=== PATIENT | female | born 1950 | race Caucasian/White ===

== ENCOUNTER 2024-10-27 12:35 | Emergency (ER) | payer BC, SELFPAY ==
--- OUTSIDE RECORDS SUMMARY | 2024-10-27 10:40 | XMS_ITS | Encounter Summary ---
[facility] Organization [facility] Address [address] [place] [address] Care Team Providers Care Ortho Rn Name Role Phone Neo Lee MD Primary Care Provider [phone] Reason for Referral * Radiology Services (Routine) - Pending Review Specialty Diagnoses / Procedures Referred By Scottie hunt Referred To Contact Radiology Diagnoses Cerebrovascular accident (CVA), unspecified mechanism (CMS/HCC) Benign hypertension Other specified symptoms and signs involving the circulatory and respiratory systems Procedures US CAROTID DOPPLER Matty Boston FNP [address] [place] [address] Phone: tel: fax: [facility] Ultrasound [place] [address] [place] [address] Phone: tel: fax: Referral ID Status Reason Start Date Expiration Date V isits Requested Visits Authorized [id number] Pending Review 10/27/2024 11/27/2025 1 1 Reason for Visit * Reason Comments Chronic Conditions Coordination Tingling Pt states left side tingling/numbness since yesterday Encounter Details Date Type Department Care Team (Latest Contact Info) Description 10/27/2024 10:40 AM CDT Office Visit [facility] Medicine [place] [address] [place] [phone] Matty Boston, FINISHING SUPERVISOR P[employer] SHEETS [address] [place] [address] Cerebrovascular accident (CVA), unspecified mechanism (CMS/HCC) (Primary Dx); Benign hypertension; Muscle fatigue; Numbness and tingling; Idiopathic peripheral neuropathy; Other specified symptoms and signs involving the circulatory and respiratory systems Social History Tobacco Use Types Packs/Day Years Used Date Smoking Tobacco: Never Smokeless Tobacco: Never Alcohol Use Standard Drinks/Week Comments Never 0 (1 standard drink = 0.6 oz pur e alcohol) Comments No Sex and Gender Information Value Date Recorded Sex Assigned at Not on file Legal Sex Female 7:44 AM IT NETWORK ADMINISTRATOR Gender Identity Not on file Sexual Orientation Not on file documented as of this encounter Last Filed Vital Signs Vital Sign Reading Time Taken Comments Blood Pressure 154/72 10/27/2024 10:40 AM CDT Pulse 92 10/27/2024 10:39 AM CDT Temperature 36.6 C (97.8 F) 10/27/2024 10:39 AM CDT Respiratory Rate 18 10/27/2024 10:39 AM CDT Oxygen Saturation 94% 10/27/2024 10:39 AM CDT Inhaled Oxygen Concentration - - Weight 82.7 kg (182 lb 6.4 oz) 10/27/2024 10:39 AM CDT Height 167.6 cm (5' 6 ) 10/27/2024 10:39 AM CDT Body Mass Index 29.44 10/27/2024 10:39 AM CDT documented in this encounter Progress Notes * Matty Boston FNP - 10/27/2024 10:38 AM CDT Chief Complaint Patient presents with Chronic Conditions Coordination Tingling Pt states left side tingling/numbness since yesterday Patient Active Problem List Diagnosis Code Multiple thyroid nodules E04.2 Gastroesophageal reflux disease K21.9 Mixed hyperlipidemia E78.2 Primary osteoarthritis involving multiple joints M15.0 Preoperative general physical examination Z01.818 Primary osteoarthritis of left hip M16.12 Prediabetes R73.03 Status post left hip replacement - 05/17/2024 Z96.642 Benign hypertension I10 Cerebrovascular accident (CVA) ([facility]) I63.9 Muscle fatigue M62.89 Idiopathic peripheral neuropathy G60.9 Numbness and tingling R20.0, R20.2 History of Present Illness The patient is a 74-year-old female presenting with left-sided numbness. Symptoms started yesterday, unable to tell me exact time, feels like all day . She reports significant discomfort and numbness in her left leg, general left- sided numbness and tingling, loss of balance, and increased sensitivity to touch since 10/26/2024. She suspects a stroke and took aspirin last night. No muscle weakness or speech difficulties reported. Occasional neck muscle spasms noted. She report had lumbar back surgery with spinal fusion in three places and a left hip replacement within the last year, without symptom relief. Patient has been experiencing severe neuropathic pain after a massage session years ago led to months of immobility. She has diagnosed with muscle fatigue and peripheral neuropathy by different specialist. Takes daily vitamins, no medications. 10 point review of systems is otherwise negative except as mentioned above. Depression Screen Positive: PHQ-2 score >= 3 or PHQ-9 score >= 9 PHQ-2 Total: 0 (10/27/2024 10:38 AM) DEPRESSION PLAN OF CARE Her depression screen was negative. (PHQ2 <3, PHQ9 <10, Hector <11) Past Medical History: Diagnosis Date Arthritis Back pain hx of back surgery - 08/2023 GERD (gastroesophageal reflux disease) Hyperlipidemia diet controlled Motion sickness Multiple thyroid nodules removed approx around 2014 no problems sense No current outpatient medications Past Surgical History: Procedure Laterality Date HX CHOLECYSTECTOMY 2016 HX SPINAL SURGERY 08/2023 fused back (Lumbar) HX SURGICAL OTHER 2014 thyroid nodes all removed HX TONSIL AND ADENOIDECTOMY 1966 HX TUBAL LIGATION 1977 DC ARTHRP ACETBLR/PROX FEM PROSTC AGRFT/ALGRFT Left 05/17/2024 HIP ARTHROPLASTY TOTAL ANTERIOR APPROACH performed by Elijah Reyna MD at [facility] OR Past social, family, and medical history reviewed. BP (!) 154/72 Pulse 92 Temp 97.8 ??F (36.6 ??C) Resp 18 Ht 5' 6 (1.676 m) Wt 82.7 kg (182 lb 6.4 oz) SpO2 94% BMI 29.44 kg/m?? Physical Exam Constitutional: General: She is not in acute distress. Appearance: Normal appearance. She is not ill-appearing. HENT: Right Ear: External ear normal. Left Ear: External ear normal. Eyes: Conjunctiva/sclera: Conjunctivae normal. Pupils: Pupils are equal, round, and reactive to light. Cardiovascular: Rate and Rhythm: Normal rate and regular rhythm. Heart sounds: No murmur heard. Pulmonary: Effort: Pulmonary effort is normal. No respiratory distress. Musculoskeletal: General: Normal range of motion. Skin: General: Skin is warm and dry. Neurological: Mental Status: She is alert and oriented to person, place, and time. GCS: GCS eye subscore is 4. GCS verbal subscore is 5. GCS motor subscore is 6. Cranial Nerves: Cranial nerves 2-12 are intact. Motor: Motor function is intact. Coordination: Coordination is intact. Comments: NIHSS 1, abnormal left side sensation Psychiatric: Mood and Affect: Mood normal. Behavior: Behavior normal. ICD-10-CM ICD-9-CM 1. Cerebrovascular accident (CVA), unspecified mechanism (CMS/HCC) I63.9 434.91 US CAROTID DOPPLER COMPREHENSIVE METABOLIC PANEL CBC WITH DIFFERENTIAL LIPID PANEL TSH CANCELED: CT HEAD WO CONTRAST 2. Benign hypertension I10 401.1 US CAROTID DOPPLER COMPREHENSIVE METABOLIC PANEL CBC WITH DIFFERENTIAL LIPID PANEL TSH CANCELED: CBC WITH DIFFERENTIAL CANCELED: COMPREHENSIVE METABOLIC PANEL CANCELED: TSH CANCELED: LIPID PANEL CANCELED: LIPID PANEL CANCELED: TSH CANCELED: COMPREHENSIVE METABOLIC PANEL CANCELED: CBC WITH DIFFERENTIAL 3. Muscle fatigue M62.89 729.89 4. Numbness and tingling R20.0 782.0 R20.2 5. Idiopathic peripheral neuropathy G60.9 356.9 6. Other specified symptoms and signs involving the circulatory and respiratory systems R09.89 785.9 US CAROTID DOPPLER 786.9 Assessment & Plan Suspected stroke - Left-sided numbness, tingling, altered sensation since yesterday. Unknown exact time - Good strength, speech, and smile; some left-sided sensation difference - Originally I was planning to obtain stat CT scan, and labs, but towards the end of the evaluationpatient complaining her left upper extremity is having worsening pain and neuropathy symptoms sinceshe has arrived at the clinic. Discussed with patient that since her symptoms are getting worse, she probably should be evaluated at local ER. Patient agreed to head to local ER POV with her . Hypertension - Slightly elevated BP today - Address BP management at follow-up - She is not currently taking any medication - Will address her other chronic pain and neuropathy symptoms at future visit Follow-up - 1 week KIARA Giraldo-C The author of this note, patient (or authorized sales representative business courses), and all other persons present consent to the audio recording of this visit for charting documentation purposes. This note was automatically generated, edited by a Quality Corporate Quality Manager, and finalized by KIARA Farmer. documented in this encounter Plan of Treatment Upcoming Encounters Date Type Department Care Team (Late st Contact Info) Description 05/18/2025 1:20 PM IT NETWORK ADMINISTRATOR Office Visit [facility]3] Orthopedics - Orthopedic [facility] [address] [address] Atiya Patel, NICKY [address] [place] [address] Scheduled Orders Name Type Priority Associated Diagnoses Orde r Schedule US CAROTID DOPPLER Imaging Routine Cerebrovascular accident (CVA), unspecified mechanism (CMS/HCC) Benign hypertension Other specified symptoms and signs involving the circulatory and respiratory systems 1 Occurrences starting 10/27/2024 until 12/28/2025 COMPREHENSIVE METABOLIC PANEL Lab Routine Cerebrovascular accident (CVA), unspecified mechanism (CMS/HCC) Benign hypertension Expected: 10/27/2024, Expires: 10/27/2025 CBC WITH DIFFERENTIAL Lab Routine Cerebrovascular accident (CVA), unspecified mechanism (CMS/HCC) Benign hypertension Expected: 10/27/2024, Expires: 10/27/2025 LIPID PANEL Lab Routine Cerebrovascular accident (CVA), unspecified mechanism (CMS/HCC) Benign hypertension Expected: 10/27/2024, Expires: 10/27/2025 TSH Lab Routine Cerebrovascular accident (CVA), unspecified mechanism (CMS/HCC) Benign hypertension Expected: 10/27/2024, Expires: 10/27/2025 documented as of this encounter Visit Diagnoses Diagnosis Cerebrovascular accident (CVA), unspecified mechanism (CMS/HCC)- Primary Benign hypertension Essential hypertension, benign Muscle fatigue Other musculoskeletal symptoms referable to limbs Numbness and tingling Disturbance of skin sensation Idiopathic peripheral neuropathy Unspecified hereditary and idiopathic peripheral neuropathy Other specified symptoms and signs involving the circulatory and respiratory systems documented in this encounter Care Teams Ortho Rn Relationship Specialty Start Date End Date Neo Lee MD [address] [place] [phone] PCP - General Family Practice 04/25/19 documented as of this encounter
[2024-10-27 12:39] VITALS: PULSE 81; RESP 16; TEMP 36.6; O2SAT 96
[2024-10-27 12:43] VITALS: BP 210/89; PULSE 80; O2SAT 97
--- OUTSIDE RECORDS SUMMARY | 2024-10-27 12:55 | XMS_ITS | Encounter Summary ---
Author Organization [facility] Address [address] [place] [address] Care Team Providers Care Aquarium Tank Attendant Name Role Phone Neo Lee MD Primary Care Provider [phone] Encounter Details Date Type Department Care Team (Late st Contact Info) Description 10/18/2024 External Device Data ST[place] ABSTRACTION Provider, Abstract NO ADDRESS ON FILE Social History Tobacco Use Types Packs/Day Years Used Date Smoking Tobacco: Never Smokeless Tobacco: Never Alcohol Use Standard Drinks/Week Comments Never 0 (1 standard drink = 0.6 oz pur e alcohol) Comments No Sex and Gender Information Value Date Recorded Sex Assigned at Not on file Legal Sex Female 7:44 AM RUBBER GOODS FINISHER Gender Identity Not on file Sexual Orientation Not on file documented as of this encounter Plan of Treatment Upcoming Encounters Date Type Department Care Team (Late st Contact Info) Description 05/18/2025 1:20 PM RUBBER GOODS FINISHER Office Visit [facility] Orthopedics - Orthopedic [facility] [address] [place] [phone] Atiya Patel NP [address] [place] [address] documented as of this encounter Visit Diagnoses Not on filedocumented in this encounter Care Teams Aquarium Tank Attendant Relationship Specialty Start Date End Date Neo Lee MD [address], [place] [phone] PCP - General Family Practice 04/25/19 documented as of this encounter
--- OUTSIDE RECORDS SUMMARY | 2024-10-27 12:55 | XMS_ITS | Encounter Summary ---
Author Organization [facility] Address [address] [facility] [place] [address] Care Team Providers Care Military Source Operations Specialist Name Role Phone Neo Lee MD Primary Care Provider [phone] Encounter Details Date Type Department Care Team (Late st Contact Info) Description 08/19/2000 Inpatient Historical [facility] [address] [place] [phone] Tacho Broderick MD 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
--- OUTSIDE RECORDS SUMMARY | 2024-10-27 12:55 | XMS_ITS | Encounter Summary ---
Author Organization [facility] Address [address] [facility] [place] [address] Care Team Providers Care Spool Winder Name Role Phone Neo Lee MD Primary Care Provider [phone] Encounter Details Date Type Department Care Team (Late st Contact Info) Description 08/11/2000 Inpatient Historical [facility] [address] [place] [phone] Tacho Broderick MD [address] [place] [phone] (Work) Other screening mammogram (Primary Dx) Social History Tobacco Use Types Packs/Day Years Used Date Smoking Tobacco: Never Assessed Comments Unknown Sex and Gender Information Value Date Recorded Sex Assigned at Not on file Legal Sex Female 10:48 AM SENIOR PROCESS ENGINEER Gender Identity Not on file Sexual Orientation Not on file documented as of this encounter Plan of Treatment Not on file documented as of this encounter Visit Diagnoses Diagnosis Other screening mammogram- Primary documented in this encounter Care Teams Spool Winder Relationship Specialty Start Date End Date Neo Lee MD [address] [place] [address] PCP - General Family Practice 04/25/19 documented as of this encounter
--- OUTSIDE RECORDS SUMMARY | 2024-10-27 12:55 | XMS_ITS | Clinical Summary ---
Author Organization [facility] Address [address] [address] Phone Care Team Providers Care Instructional Services Librarian Name Role Phone Harper Maurer PLEAT PATTERNMAKER Primary Care Provider [phone] Allergies Active Allergy Reactions Criticality Noted Date Comments Codeine Unknown 05/09/2009 Medications phenazopyridine (Urinary Pain Relief) 95 mg tablet Take 95 mg by mouth 3 (three) times a day if needed for bladder spasms. Active cyanocobalamin (Vitamin B-12) 1,000 mcg tablet Take 1,000 mcg by mouth 1 (one) time each day. Active meloxicam (Mobic) 7.5 mg tablet Take 7.5 mg by mouth 1 (one) time each day. 12/28/2023 Active ergocalciferol (Vitamin D-2) 1,250 mcg (50,000 unit) capsule Take 50,000 Units by mouth 1 (one) time per week. Active Social History Tobacco Use Types Packs/Day Years Used Date Smoking Tobacco: Never Smokeless Tobacco: Never Tobacco Cessation:Counseling Given: Not Answered Alcohol Use Standard Drinks/Week Comments Never 0 (1 standard drink = 0.6 oz pur e alcohol) AUDIT-C Answer Date Recorded Q1: How often do you have a drink containing alcohol? Never 03/09/2024 Q2: How many drinks containi ng alcohol do you have on a typical day when you are drinking? Patient does not drink Q3: How often do you have si x or more drinks on one occasion? Never 03/09/2024 PHQ-2 Answer Date Recorded Patient Health Questionnaire-2 Score 0 03/09/2024 [facility] - Mental Health Answer Date Recorde d Little interest or pleasure in doing things Not at all 03/09/2024 Feeling down, depressed, or hopeless Not at all 03/09/2024 Feeling of Stress Not on file 03/09/2024 Comments Unknown Sex and Gender Information Value Date Recorded Sex Assigned at Female 11/24/2023 1:07 PM CDT Legal Sex Female 1:05 PM CDT Gender Identity Female 11/24/2023 1:07 PM CDT Sexual Orientation Straight 11/24/2023 1: 07 PM CDT Last Filed Vital Signs Vital Sign Reading Time Taken Comments Blood Pressure 124/76 03/09/2024 2:48 PM MILL SUPERVISOR Pulse 87 03/09/2024 2:48 PM MILL SUPERVISOR Temperature 36.8 C (98.2 F) 03/09/2024 2:48 PM MILL SUPERVISOR Respiratory Rate 18 03/09/2024 2:48 PM MILL SUPERVISOR Oxygen Saturation 94% 03/09/2024 2:48 PM MILL SUPERVISOR Inhaled Oxygen Concentration - - Weight 81.2 kg (179 lb) 03/09/2024 2:48 PM MILL SUPERVISOR Height 165.1 cm (5' 5 ) 03/09/2024 2:48 PM MILL SUPERVISOR Body Mass Index 29.79 03/09/2024 2:48 PM MILL SUPERVISOR Plan of Treatment Health Maintenance Due Date Last Done Comments CT Colonography 1950 FIT-DNA 1950 FIT 1950 FOBT 1950 Sigmoidoscopy 1950 MMR Vaccines (1 of 1 - Standard series) 09/01/1951 Varicella Vaccines (1 of 2 - 13+ 2-dose series) 09/01/1963 Social Drivers of Health (SDoH) 1968 Mammogram 1990 Zoster Vaccines (1 of 2) 2000 DTaP,Tdap,and Td Vaccines (2 - Tdap) 02/03/2006 01/06/2006 Pneumococcal Vaccine: 50+ Years (2 of 2 - PCV20 or PCV21) 01/12/2016 01/11/2015 Medicare Initial AWV [id number] 08/03/2016 COVID-19 Vaccine (1 - season) 2023 Influenza Vaccine (#1) 2024 01/11/2015, 2012 Complete Fall Risk Assessment 03/09/2025 03/09/2024, 03/09/2024, 03/09/2024, Additional history exists Depression Screening 03/10/2025 03/09/2024 RSV Vaccines (1 - 1-dose 75+ series) 2025 Colonoscopy 03/24/2026 03/24/2016 Colorectal Cancer Screening 03/24/2026 Pneumococcal Vaccine Aged Out 01/11/2015 No long er eligible based on patient's age to complete this topic HIB Vaccines Aged Out No longer eligi ble based on patient's age to complete this topic HPV Vaccines Aged Out No longer eligi ble based on patient's age to complete this topic Hepatitis A Vaccines Aged Out No long er eligible based on patient's age to complete this topic Hepatitis B Vaccines Aged Out No long er eligible based on patient's age to complete this topic IPV Vaccines Aged Out No longer eligi ble based on patient's age to complete this topic Meningococcal B Vaccine Aged Out No l onger eligible based on patient's age to complete this topic Meningococcal Vaccine Aged Out No zoey jyoti eligible based on patient's age to complete this topic Rotavirus Vaccines Aged Out No longer eligible based on patient's age to complete this topic Insurance [facility] MEDICARE ADVANTAGE Care Teams Instructional Services Librarian Relationship Specialty Start Date End Date Harper Maurer NP [address] [place] [address] PCP - General Family Medicine 12/16/23
--- OUTSIDE RECORDS SUMMARY | 2024-10-27 12:55 | XMS_ITS | Encounter Summary ---
Author Organization [facility] Address [address] [facility] [place] [address] Care Team Providers Care Healthcare Marketer Name Role Phone Neo Lee MD Primary Care Provider [phone] Encounter Details Date Type Department Care Team (Latest Contact Info) Description 08/23/1998 Inpatient Historical Historical [facility] Trace Carson W, DO [address] [place] [id number] Other symptoms involving digestive system(787.99) (Primary Dx) Social History Tobacco Use Types Packs/Day Years Used Date Smoking Tobacco: Never Assessed Comments Unknown Sex and Gender Information Value Date Recorded Sex Assigned at Not on file Legal Sex Female 10:48 AM 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
--- OUTSIDE RECORDS SUMMARY | 2024-10-27 12:55 | XMS_ITS | Clinical Summary ---
Author Organization [facility] Address [address] Attn: Epic Prelude ADT SHANNON VALLECI[place]O [address] Care Team Providers Care Caser Up Name Role Phone Neo Lee MD Primary Care Provider [phone] Allergies Active Allergy Reactions Criticality Noted Date Comments Codeine Unknown 05/09/2009 Medications No known medications Active Problems Problem Noted Date Diagnosed Date Benign hypertension 10/27/2024 Cerebrovascular accident (CVA) 10/27/2024 Muscle fatigue 10/27/2024 Idiopathic peripheral neuropathy 10/27/2024 Numbness and tingling 10/27/2024 Status post left hip replacement - 05/17/202403/2025 Preoperative general physical examination 2024 Primary osteoarthritis of left hip 05/03/2024 Prediabetes 05/03/2024 Multiple thyroid nodules 04/25/2019 Gastroesophageal reflux disease 04/25/2019 Mixed hyperlipidemia 04/25/2019 Primary osteoarthritis involving multiple joints 04/25/2019 Encounters Date Type Department Care Team Description 10/27/2024 10:40 AM CDT Office Visit [facility] [address] [place] [id number] Matty Boston FNP Cerebrovascular accident (CVA), unspecified mechanism (CMS/HCC) (Primary Dx); Benign hypertension; Muscle fatigue; Numbness and tingling; Idiopathic peripheral neuropathy; Other specified symptoms and signs involving the circulatory and respiratory systems 10/18/2024 External Device Data STL ABSTRACTION Provider, Abstract 10/18/2024 External Device Data STL ABSTRACTION Provider, Abstract 09/19/2024 External Device Data STL ABSTRACTION Provider, Abstract 08/24/2024 External Device Data STL ABSTRACTION Provider, Abstract 08/23/2024 External Device Data STL ABSTRACTION Provider, Abstract 08/22/2024 External Device Data STL ABSTRACTION Provider, Abstract 08/11/2024 11:00 AM CDT Office Visit [facility] [address] [place] [address] Atiya Patel NP History of fusion of lumbar spine (Primary Dx) 08/11/2024 10:35 AM CDT Ancillary Procedure [address] [place] [address] Elijah Reyna MD Status post left hip replacement - 05/17/2024 08/10/2024 Orders Only [address] [place] [address] Elijah Reyna MD Status post left hip replacement - 05/17/2024 (Primary Dx) from Last 3 Months Immunizations Immunization Administration Dates Next Due (ADACEL/BOOSTRIX)(10 YR UP) TDAP VACCINE, 0.5ML, IM 04/18/2024 (M-M-R II/PRIORIX)(12 MO UP) MEASLES, MUMPS AND RUBELLA VIRUS VACCINE, 0.5 ML IM/SUBCUT 07/31/2005 (PREVNAR 13)(6 WKS UP) PNEUM OCOCCAL CONJUGATE (PCV13) 0.5 ML, IM 01/11/2015 (TDVAX)(7 YRS UP) TETANUS AN D DIPHTHERIA TOXOIDS, ADSORBED (2 LF OF TETANUS TOXOID AND 2 LF OF DIPHTHERIA TOXOID), 0.5ML (PF), IM 01/06/2006 Influenza Seasonal Unspecified Formulation IM ,01/05/2013 Family History Relation Name Status Comments Father Mother Social History Tobacco Use Types Packs/Day Years Used Date Smoking Tobacco: Never Smokeless Tobacco: Never Tobacco Cessation:Counseling Given: Not Answered Alcohol Use Standard Drinks/Week Comments Never 0 (1 standard drink = 0.6 oz pur e alcohol) Comments No Sex and Gender Information Value Date Recorded Sex Assigned at Not on file Legal Sex Female 7:44 AM 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 FORMING 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 Gender Identity Not on file Sexual Orientation Not on file Last Filed Vital Signs Vital Sign Reading [...] Mass Index 29.44 10/27/2024 10:39 AM CDT Plan of Treatment Upcoming Encounters Date Type Department Care Team (Late st Contact Info) Description 05/18/2025 1:20 PM HIGH ENERGY FORMING 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 Office Visit [facility] Orthopedics - Orthopedic [facility] [address] [place] [phone] Atiya Patel, NICKY [address] [place] [address] Health Maintenance Due Date Last Done Comments FIT-DNA Q 3 years 09/01/1995 FIT/FOBT Q 1 year 09/01/1995 Flex Sig/CT Colonography Q 5 years 09/01/1995 ZOSTER VACCINE (1 of 2) 2000 PNEUMOCOCCAL VACCINE 50+ YEA RS (2 of 2 - PCV20 or PCV21) 01/12/2016 01/11/2015 BREAST CANCER SCREENING 04/12/2019 04/12/2018, 03/11 OSTEOPOROSIS SCREENING 04/12/2023 04/12/2018 [place] Prev entative Visit/Annual Wellness Visit 04/05/2024 INFLUENZA VACCINE (#1) 2024 0, 01/11/2015, 01/05/2013 RSV VACCINE (60+ or ) (1 - 1-dose 75+ series) 2025 COLORECTAL SCREENING 03/24/2026 03/24/2016, 03/24/2016, 03/24/2016 Colorectal Cancer Screening 03/24/2026 DTAP/TDAP/TD VACCINES (2 - T d or Tdap) 04/18/2034 04/18/2024, 01/06/2006 Medical Devices Implanted Type Area Repeat Chief Device Identifier Shelf Expiration Date Model / Serial / Lot Shell Emphasys 48mm 3hl Acet Cmntls 4710-48-300 - [id number] Implanted:Qty: 1 on 05/17/2024 by Elijah Reyna MD at [facility] Hip Left: Hip [employer] [id number] 02/02/2034 4710-48-3 00 / / [id number] Stem Fem Actis Hi Colr Sz4 1010-12-040 - [id number] Implanted:Qty: 1 on 05/17/2024 by Elijah Reyna MD at [facility] Hip Left: Hip [employer] [id number] 07/03/2033 1010-12-0 40 / / [id number] Head Fem Art/Darren Cer Sz28 1365-28-310 - [id number] Implanted:Qty: 1 on 05/17/2024 by Elijah Reyna MD at [facility] Hip Left: Hip [employer] FREDDIE [id number] 08/02/2026 1365-28-3 10 / / [id number] Emp Dm Laureen 48mm 38mm Implanted:Qty: 1 on 05/17/2024 by Elijah Reyna MD at [facility] Left: Hip 01/02/2034 DEPUY-472 5-48-038 / / [id number] Emp Mob Bear Head 38mm 28mm Implanted:Qty: 1 on 05/17/2024 by Elijah Reyna MD at [facility] Left: Hip 01/02/2029 DEPUY-473 2-38-028 / / [id number] Procedures Procedure Name Priority Date/Time Associated Diagnosis Comments XR PELVIS 1 OR 2 VW Routine 08/11/2024 1 0:38 AM CDT Status post left hip replacement - 05/17/2024 ENDOSCOPY, COLON, SCREENING 03/24/2016 12:00 AM HIGH ENERGY FORMING 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 from Last 3 Months or Most Recently Relevant to Health Maintenance Results * XR PELVIS 1 OR 2 VW (08/11/2024 10:38 AM CDT) Anatomical Region Laterality Modality Pelvis Computed Radiogr aphy Narrative 08/14/2024 7:03 AM CDT Standing AP pelvis and cross-table lateral x-rays of the operative hip show a total hip arthroplasty with the components in good position and unchanged from the immediate post-operative films. Elijah Reyna MD DIAGNOSTIC IMAGING ARIE PATHAK Final Result * ENDOSCOPY, COLON, SCREENING (03/24/2016 12:00 AM HIGH ENERGY FORMING 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) Sgf Scanning GI PROCEDURE ORDERABLES Final Re sult from Last 3 Months or Most Recently Relevant to Health Maintenance Insurance BCBS MEDICARE HMO RX [facility] Medicare Part D RX [employer] (INTERNAL) [facility] Internal Plans Advance Directives For more information, please contact: [phone] * Full Code (Latest Code Status on File) Date Activated Date Inactivated Comments 05/17/2024 11:05 AM 05/18/2024 3:22 PM * Full Code Date Activated Date Inactivated Comments 05/17/2024 5:31 AM 05/17/2024 11:05 AM Care Teams Caser Up Relationship Specialty Start Date End Date Neo Lee MD [address] [place] [address] PCP - General Family Practice 04/25/19
--- OUTSIDE RECORDS SUMMARY | 2024-10-27 12:55 | XMS_ITS | Encounter Summary ---
Author Organization [facility] Address [address] [place] [address] Care Team Providers Care Marine Equipment Sales Engineer Name Role Phone Neo Lee MD Primary Care Provider [phone] Encounter Details Date Type Department Care Team (Latest Contact Info) Description 08/23/1998 Inpatient Historical Historical [facility] Rad Trace Carson W, DO [address] [place] [address] Nonspecific abnormal results of liver function study (Primary Dx) Social History Tobacco Use Types Packs/Day Years Used Date Smoking Tobacco: Never Assessed Comments Unknown Sex and Gender Information Value Date Recorded Sex Assigned at Not on file Legal Sex Female 10:48 AM INTERNATIONAL LOGISTICS COORDINATOR Gender Identity Not on file Sexual Orientation Not on file documented as of this encounter Plan of Treatment Not on file documented as of this encounter Visit Diagnoses Diagnosis Nonspecific abnormal results of liver function study- Primary documented in this encounter Care Teams Marine Equipment Sales Engineer Relationship Specialty Start Date End Date Neo Lee MD [address] [place] [address] PCP - General Family Practice 04/25/19 documented as of this encounter
--- OUTSIDE RECORDS SUMMARY | 2024-10-27 12:55 | XMS_ITS | Clinical Summary ---
Author Organization [facility] Address [address] [place] [address] Phone Care Team Providers Care Package Sealer Name Role Phone Neo Lee MD Primary Care Provider [phone] Allergies Active Allergy Reactions Criticality Noted Date Comments Codeine Unknown 05/09/2009 Medications melatonin 5 mg Tablet Take by mouth nightly as needed. Active omeprazole (PriLOSEC) 20 mg Capsule, Delayed Release(E.C.)Indica tions:Gastroesophag eal reflux disease, esophagitis presence not specified Take 1 Capsule (20 mg) by mouth daily. 90 Capsule 1 0 Active meloxicam (MOBIC) 15 mg tabletIndications:P rimary osteoarthritis involving multiple joints TAKE ONE TABLET BY MOUTH DAILY 90 Tablet 1 0 Active Active Problems Problem Noted Date Diagnosed Date Multiple thyroid nodules 04/25/2019 Gastroesophageal reflux disease 04/25/2019 Mixed hyperlipidemia 04/25/2019 Primary osteoarthritis involving multiple joints 04/25/2019 Social History Tobacco Use Types Packs/Day Years Used Date Smoking Tobacco: Never Smokeless Tobacco: Never Alcohol Use Standard Drinks/Week Comments Never 0 (1 standard drink = 0.6 oz pur e alcohol) Comments No Sex and Gender Information Value Date Recorded Sex Assigned at Not on file Legal Sex Female 10:48 AM HEALTH CENTER ASSISTANT Gender Identity Not on file Sexual Orientation Not on file Last Filed Vital Signs Vital Sign Reading Time Taken Comments Blood Pressure 120/62 04/25/2019 8:16 AM HEALTH CENTER ASSISTANT Pulse 67 04/25/2019 8:16 AM HEALTH CENTER ASSISTANT Temperature 36.6 C (97.8 F) 04/25/2019 8:16 AM HEALTH CENTER ASSISTANT Respiratory Rate 18 04/25/2019 8:16 AM HEALTH CENTER ASSISTANT Oxygen Saturation 98% 04/25/2019 8:16 AM HEALTH CENTER ASSISTANT Inhaled Oxygen Concentration - - Weight 74.8 kg (165 lb) 04/25/2019 8:16 AM HEALTH CENTER ASSISTANT Height 167.6 cm (5' 6 ) 04/25/2019 8:16 AM HEALTH CENTER ASSISTANT Body Mass Index 26.63 04/25/2019 8:16 AM HEALTH CENTER ASSISTANT Plan of Treatment Health Maintenance Due Date Last Done Comments DTAP/TDAP/TD VACCINES (1 - Tdap) 1969 FIT-DNA Q 3 years 09/01/1995 FIT/FOBT Q 1 year 09/01/1995 Flex Sig/CT Colonography Q 5 years 09/01/1995 PNEUMOCOCCAL VACCINE 50+ YEA RS (1 of 1 - PCV) 2000 ZOSTER VACCINE (1 of 2) 2000 BREAST CANCER SCREENING 04/12/2019 04/12/2018, 03/11 Traditional Medicare (ACO) A nnual Wellness Visit 04/26/2020 04/25/2019 OSTEOPOROSIS SCREENING 04/12/2023 04/12/2018 INFLUENZA VACCINE (#1) 2024 04/25/2019 RSV VACCINE (60+ or ) (1 - 1-dose 75+ series) 2025 COLORECTAL SCREENING 03/24/2026 03/24/2016, 03/24/20 16 Colorectal Cancer Screening 03/24/2026 Procedures Procedure Name Priority Date/Time Associated Diagnosis Comments ENDOSCOPY, COLON, SCREENING Routine 03/24/2016 from Last 3 Months or Most Recently Relevant to Health Maintenance Results * ENDOSCOPY, COLON, SCREENING (03/24/2016) us Abstract Spg Provider GI PROCEDURE ORDERABLES Fi nal Result from Last 3 Months or Most Recently Relevant to Health Maintenance Insurance MEDICARE PART A AND B [facility] Care Teams Package Sealer Relationship Specialty Start Date End Date Neo Lee MD [address] [place] [address] PCP - General Family Practice 04/25/19
--- NOTE | 2024-10-27 12:56 | XR_ITS ---
WS: [id number] Portable AP upright chest, 10/27/2024 Clinical Data: Weakness Comparison: None. Findings: No nodules, masses or effusions are seen. The heart is normal. The pulmonary vascularity is not increased. No pneumonia or pneumothorax is seen. The aortic arch shows mild tortuosity. XR/XR chest 1V portable [id number] Impression: Atherosclerosis.
--- NOTE | 2024-10-27 12:56 | CT_ITS ---
WS: [id number] CT HEAD NONCONTRAST HISTORY: TIA TECHNIQUE: Contiguous axial imaging performed through the brain. Bone and soft tissue windows. Sagittal and coronal reformats reviewed. All CT scans at [facility] use at least one of these dose optimization techniques: automated exposure control; mA and/or kV adjustment per patient size (includes targeted exams where dose is matched to clinical indication); or iterative reconstruction. DLP: 1031.18 mGy.cm COMPARISON: None available. No acute intracranial hemorrhage, midline shift or mass effect. Very minimal cerebral and cerebellar atrophy and small vessel disease. Prior lacunar infarct in the LEFT thalamus. No large infarcts. Ventricles: Normal size with no hydrocephalus. Paranasal sinuses: As visualized are clear. Mastoid air cells: Well pneumatized. Calvarium and scalp: Skull is intact with no soft tissue edema or swelling. CT/CT head wo con* [id number] IMPRESSION: 1. No acute intracranial hemorrhage or edema. 2. Mild cerebral and cerebellar atrophy and small vessel disease. 3. Remote LEFT thalamic lacunar infarct.
--- NOTE | 2024-10-27 12:57 | ECG_ITS ---
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
--- NOTE | 2024-10-27 13:49 | ED_ITS ---
HPI - Neuro Symptoms/Deficit 2 General: Chief Complaint: Neuro Symptoms/Deficit Stated Complaint: stroke like symptoms Time Seen by Provider: 10/27/24 13:31 History of Present Illness: 74-year-old female who currently takes n o medications who presents the emergency room from her family physician's clinic with concern for a TIA yesterday. She had some tingling and heaviness in her left side particularly her arm. They resolved but when she went to clinic they felt she needed to come to the emergency room. No increased work of breathing. No altered mental status. No facial droop. Currently with no focal motor deficits or sensory deficits. Related Data Previous Rx's ?Medication ?Instructions ?Recorded aspirin 325 mg tablet 325 mg PO DAILY #30 tabs atorvastatin 40 mg tablet (Lipitor) 40 mg PO DAILY #30 tabs 10/27/24 lisinopril 20 mg tablet 20 mg PO DAILY #30 tabs 10/04 08/27 Allergies Allergy/AdvReac Type Severity Reaction Status Date / Time codeine Allergy Unknown Verified 10/27/24 14:00 Review of Systems 2 Narrative: Constitutional symptoms: Negative except as documented in HPI. Skin symptoms: Negative except as documented in HPI. Eye symptoms: Negative except as documented in HPI. ENMT symptoms: Negative except as documented in HPI. Respiratory symptoms: Negative except as documented in HPI. Cardiovascular symptoms: Negative except as documented in HPI. Gastrointestinal symptoms: Negative except as documented in HPI. Genitourinary symptoms: Negative except as documented in HPI. Musculoskeletal symptoms: Negative except as documented in HPI. Neurologic symptoms: Negative except as documented in HPI. Psychiatric symptoms: Negative except as documented in HPI. Endocrine symptoms: Negative except as documented in HPI. Physical Exam 2 Narrative: EXAM NARRATIVE: General: Alert, no acute distress. Skin: Warm, dry. Head: Normocephalic, atraumatic. Neck: Supple, trachea midline. Eye: Extraocular movements are intact. Ears, nose, mouth and throat: mucosa moist. Cardiovascular: Regular, Normal peripheral perfusion. Respiratory: Lungs are clear to auscultation, respirations are non-labored, breath sounds are equal, Symmetrical chest wall expansion. Gastrointestinal: Soft, Nontender, Non distended Musculoskeletal: Normal ROM, no deformity. Neurological: Alert and oriented, No focal neurological deficit observed. Psychiatric: Cooperative, appropriate mood & affect. Course 2 Vital Signs: Vital signs: Vital Signs Temperature 97.9 F 10/27/24 12:39 Pulse Rate 77 10/27/24 14:00 Respiratory Rate 18 10/27/24 14:00 Blood Pressure 188/85 10/27/24 14:02 Pulse Oximetry 93 10/27/24 14:00 Oxygen Delivery Me thod Room Air 10/27/24 13:58 MDM - Neuro Symptoms/Deficit Medical Decision Making Medical decision making: Differential diagnosis for patient with focal neurologic deficit(s) includes but not limited to and based on the above HPI, review of systems and physical exam: ischemic stroke, hemorrhagic stroke and embolic stroke secondary to atrial fibrillation), TIA, Osei's palsey, metabolic encephalopathy with previous stroke. Orders placed to evaluate differential diagnosis based on the above differential, HPI and physical exam Chest x-ray: No acute process. Remote left thalamic lacunar infarct. No infiltrate. No pneumothorax. This was reviewed and interpreted by myself the emergency room physician. I also reviewed the radiology report. CT head: No acute intracranial process. no intracranial hemorrhage, no evidence of acute fracture.This was reviewed and interpreted by myself the ER physician. EKG: Time 1247. Rate 76. Normal sinus rhythm, No ST-T changes, no ectopy, normal TX & QRS intervals, This was reviewed and interpreted by myself the ER physician at 1255 Lab Review: Laboratory results were reviewed and interpreted by myself the emergency room physician. No leukocytosis. No anemia. No renal failure. Cardiac markers are negative. I reviewed the patient's medical record. Reexamination: Patient has had no neurologic symptoms. Blood pressure came down with clonidine. I discussed findings. Discussed that we will place her on stroke prevention medications and she needs to follow with her primary doctor. Given that there is evidence of a small old lacunar stroke she definitely needs to be on full preventative measures. Assessment and plan: Transient ischemic attack Hypertension ? Clonidine in the emergency room and a full-strength aspirin - Discharged home - Discussed plan with patient. Answered any questions. - Evaluation and treatment of this problem were appropriate in the emergency setting. Lab Data 10/27/24 13:39 10/27/24 13:39 Radiology Impressions Chest X-Ray 10/27/24 12:56 Impression: Atherosclerosis. Head CT 10/27/24 12:56 IMPRESSION: 1. No acute intracranial hemorrhage or edema. 2. Mild cerebral and cerebellar atrophy and small vessel disease. 3. Remote LEFT thalamic lacunar infarct. Laboratory Results WBC 9.87 10^3/uL (3.29-11.43) 10/27/24 13:39 RBC 4.26 10^6/uL (3.85-5.65) 10/27/24 13:39 Hgb 13.70 g/dL (11.27-16.99) 10/27/24 13:39 Hct 40.7 % (36-47) 10/27/24 13:39 MCV 95.5 fl (85-98) 10/27/24 13:39 MCH 32.2 pg (27-33) 10/27/24 13:39 MCHC 33.7 g/dL (30-55) 10/27/24 13:39 RDW 13.4 % (12.1-15.1) 10/27/24 13:39 Plt Count 343 10^3/cmm (157-399) 10/27/24 13:39 MPV 9.5 fL (7.4-10.4) 10/27/24 13:39 Neut % (Auto) 55.3 % 10/27/24 13:39 Lymph % (Auto) 34.0 % 10/27/24 13:39 Rice % (Auto) 6.8 % 10/27/24 13:39 Eos % (Auto) 2.6 % 10/27/24 13:39 Baso % (Auto) 0.9 % 10/27/24 13:39 Neut # (Auto) 5.45 10^3/uL (1.8-7.7) 10/27/24 13:39 Lymph # (Auto) 3.4 10^3/uL (0.8-4.8) 10/27/24 13:39 Rice # (Auto) 0.7 10^3/uL (0.2-0.9) 10/27/24 13:39 Eos # (Auto) 0.3 10^3/uL (0.0-0.8) 10/27/24 13:39 Baso # (Auto) 0.1 10^3/uL (0.0-0.1) 10/27/24 13:39 Nucleated RBC % (auto) 0 % 10/27/24 13:39 Nucleated RBCs # 0.0 /100WBC 10/27/24 13:39 Sodium 138 mmol/L (136-145) 10/27/24 13:39 Potassium 4.0 mmol/L (3.5-5.1) 10/27/24 13:39 Chloride 101 mmol/L (98-107) 10/27/24 13:39 Carbon Dioxide 23 mmol/L (22-29) 10/27/24 13:39 Anion Gap 18.0 (5-19) 10/27/24 13:39 BUN 15 mg/dL (8-23) 10/27/24 13:39 Creatinine 0.6 mg/dL (0.5-0.9) 10/27/24 13:39 GFR Calculation Not Reportable 10/27/24 13:39 Glucose 88 mg/dL (65-115) 10/27/24 13:39 Calculated Osmolality 286 mOsm/kg (285-295) 10/27/24 13:39 Calcium 9.3 mg/dL (8.5-10.5) 10/27/24 13:39 Total Bilirubin 0.3 mg/dL (0.15-1.2) 10/27/24 13:39 AST 17 U/L (0-32) 10/27/24 13:39 ALT 16 U/L (0-33) 10/27/24 13:39 Alkaline Phosphatase 108 U/L (35-105) H 10/27/24 13:39 Troponin T Baseline 12 ng/L (0-10) H 10/27/24 13:39 Total Protein 7.3 g/dL (6.6-8.7) 10/27/24 13:39 Albumin 4.6 g/dL (3.5-5.2) 10/27/24 13:39 Globulin 2.7 g/dL (1.3-4.6) 10/27/24 13:39 All radiology interpretation(s) finalized by discharge Discharge Plan Discharge Patient Disposition: Home Clinical Impression: Transient ischemic attack, Hypertension Condition: Stable Prescriptions: New atorvastatin [Lipitor] 40 mg tablet 40 mg PO DAILY Qty: 30 1RF lisinopril 20 mg tablet 20 mg PO DAILY Qty: 30 1RF aspirin 325 mg tablet 325 mg PO DAILY Qty: 30 1RF Discharge Orders: Discharge ED (Routine); Ordered 10/27/24 Ordered By: Anna More Referrals: Lakeshia Romero MD [Primary Care Provider, Family Practice] Discharge Diet: Usual diet Discharge Activity: Increase activity as tolerated Patient Instructions: Transient Ischemic Attack (ED), Opioid Safety, Pain Management, Patient Portal & Loni Instructions Activity Restrictions/Additional Instructions: Thank you for choosing [facility] for your healthcare needs today. You have been screened and evaluated and felt safe for discharge. Health conditions do change or evolve sometimes and as such it is important that you follow up with your Primary Doctor to be re checked, 3-5 days is a general good time frame for follow up. You are always welcome to return to the ED for re assessment if your symptoms are worsening or you have new concerns Print Language: Maltese Coding Level of Care Code ED Testing Analyst for Murphy Cuenca
[2024-10-27 13:58] VITALS: BP 166/79; PULSE 79; RESP 16; O2SAT 96
[2024-10-27 14:00] VITALS: BP 188/85; PULSE 77; RESP 18; O2SAT 93
[2024-10-27 14:01] LABS: Alanine Aminotransferase 16 U/L (0-33); Albumin Level 4.6 g/dL (3.5-5.2); Alkaline Phosphatase 108 U/L (35-105); Anion Gap 18.0 (5-19); Aspartate Amino Transferase 17 U/L (0-32); Blood Urea Nitrogen 15 mg/dL (8-23); Calcium 9.3 mg/dL (8.5-10.5); Carbon Dioxide 23 mmol/L (22-29); Chloride 101 mmol/L (98-107); Globulin 2.7 g/dL (1.3-4.6); Glucose 88 mg/dL (65-115); Osmolality Calculated 286 mOsm/kg (285-295); Potassium 4.0 mmol/L (3.5-5.1); Sodium 138 mmol/L (136-145); Total Protein 7.3 g/dL (6.6-8.7)
[2024-10-27 14:02] VITALS: BP 188/85
[2024-10-27 14:03] LABS: Troponin(5th) Baseline 12 ng/L (0-10)
[2024-10-27 14:36] LABS: Hematocrit 40.7 % (36-47); Hemoglobin 13.70 g/dL (11.27-16.99); Mean Corpuscular HGB Conc 33.7 g/dL (30-55); Mean Corpuscular Hemoglobin 32.2 pg (27-33); Mean Corpuscular Volume 95.5 fl (85-98); Nucleated Red Blood Cells % 0 %; Platelet Count 343 10^3/cmm (157-399); Red Blood Count 4.26 10^6/uL (3.85-5.65); White Blood Count 9.87 10^3/uL (3.29-11.43)
[2024-10-27 14:48] VITALS: BP 119/95; PULSE 72; O2SAT 94
[2024-10-27 14:53] LABS: Glucose Urine UA Negative (Normal); Nitrate Urine Negative (Negative); Specific Gravity, Urine 1.008 (1.005-1.030)
== END 2024-10-27 14:49 | disposition home or self-care (01) ==
PROVIDERS: Emergency Provider Emergency Medicine; PCP Family Medicine
DX: G45.9 Transient cerebral ischemic attack, unspecified (principal); I10 Essential (primary) hypertension; Z79.82 Long term (current) use of aspirin
CPT/HCPCS: 36415; 70450; 71045; 80053; 81001; 84484; 85025; 93005; 99285; J9999

== ENCOUNTER 2025-02-25 09:26 | Emergency (ER) | payer MEDICARE, SELFPAY ==
--- NOTE | 2025-02-25 09:30 | XRR_ITS ---
PROCEDURE INFORMATION: Exam: XR Chest Exam date and time: 02/25/2025 9:47 AM Age: 74 years old Clinical indication: Pain; Chest pressure; Additional info: Chest pain TECHNIQUE: Imaging protocol: Radiologic exam of the chest. Views: 1 view. COMPARISON: CR XR chest 1V portable [id number] 10/27/2024 1:48 PM FINDINGS: Lungs: Unremarkable. No consolidation. Pleural spaces: Unremarkable. No pleural effusion. No pneumothorax. Heart/Mediastinum: Unremarkable. No cardiomegaly. Bones/joints: Unremarkable. XR/XR chest 1V portable [id number] IMPRESSION: No acute findings.
--- NOTE | 2025-02-25 09:30 | ECG_ITS ---
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 Measurements Intervals [place] Rate: 79 P: 59 MO: 144 QRS: 48 QRSD: 88 T: 63 QT: 357 QTc: 409 Interpretive Statements SINUS RHYTHM POSSIBLE LEFT ATRIAL ENLARGEMENT [-0.1mV P-WAVE IN V1/V2] Compared to ECG 10/27/2024 12:47:05 No significant changes Electronically Signed On 02-25-2025 17:23:59 MARKETING SUPPORT ASSISTANT by Miya Benitez M.D. [email or web address]
--- OUTSIDE RECORDS SUMMARY | 2025-02-25 09:31 | XMS_ITS | Clinical Summary ---
Author Organization [facility] Address [address] [address] Phone Care Team Providers Care Mathematics Improvement Teacher Name Role Phone Harper Maurer FOOD AND BEVERAGE SERVICE MANAGER Primary Care Provider [phone] Allergies Active Allergy Reactions Criticality Noted Date [...] Recorded Patient Health Questionnaire-2 Score 0 03/09/2024 [facility] - Mental Health Answer Date Recorde d [...] Comments Blood Pressure 124/76 03/09/2024 2:48 PM TOP COATER Pulse 87 03/09/2024 2:48 PM TOP COATER Temperature 36.8 C (98.2 F) 03/09/2024 2:48 PM TOP COATER Respiratory Rate 18 03/09/2024 2:48 PM TOP COATER Oxygen Saturation 94% 03/09/2024 2:48 PM TOP COATER Inhaled Oxygen Concentration - - Weight 81.2 kg (179 lb) 03/09/2024 2:48 PM TOP COATER Height 165.1 cm (5' 5 ) 03/09/2024 2:48 PM TOP COATER Body Mass Index 29.79 03/09/2024 2:48 PM TOP COATER Plan of Treatment Health Maintenance Due Date Last Done Comments CT Colonography 1950 Creatinine Level 1950 FIT-DNA 1950 FIT 1950 FOBT 1950 Lipid Panel 1950 Potassium Level 1950 Sigmoidoscopy 1950 MMR Vaccines (1 of 1 - Standard series) 09/01/1951 COVID-19 Vaccine (#1) 09/01/1955 Varicella Vaccines (1 of 2 - 13+ 2-dose series) 09/01/1963 Social Drivers of Health (SDoH) 1968 Zoster Vaccines (1 of 2) 1969 Mammogram 1990 DTaP,Tdap,and Td Vaccines (2 - Tdap) 02/03/2006 01/06/2006 Pneumococcal Vaccines: 50+ Years (2 of 2 - PPSV23, PCV20, or PCV21) 03/08/2015 01/11/2015 Medicare Initial AWV [id number] 08/03/2016 Influenza Vaccine (#1) 2024 01/11/2015, 2012 Complete Fall Risk Assessment 03/09/2025 03/09/2024, 03/09/2024, 03/09/2024, Additional history exists Depression Screening 03/10/2025 03/09/2024 RSV Vaccines (1 - 1-dose 75+ series) 2025 Colonoscopy 03/24/2026 03/24/2016 Colorectal Cancer Screening 03/24/2026 HIB Vaccines Aged Out No longer eligi [...] patient's age to complete this topic Insurance [facility] MEDICARE ADVANTAGE Care Teams Mathematics Improvement Teacher Relationship Specialty Start Date End Date Harper Maurer NP [address] [place] [address] PCP - General Family Medicine 12/16/23
--- OUTSIDE RECORDS SUMMARY | 2025-02-25 09:31 | XMS_ITS | Encounter Summary ---
Author Organization [facility] Address [address] [facility] [place] [address] Care Team Providers Care Senior Process Control Tech Name Role Phone Neo Lee MD Primary Care Provider [phone] Encounter Details Date Type Department Care Team (Late st Contact Info) Description 08/19/2000 Inpatient Historical [facility] [address] [place] [phone] Tacho Broderick MD [address] [place] [phone] (Work) Solitary cyst of breast (Primary Dx) Social History Tobacco Use Types Packs/Day Years Used Date Smoking Tobacco: Never Assessed Comments Unknown Sex and Gender Information Value Date Recorded Sex Assigned at Not on file 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
--- OUTSIDE RECORDS SUMMARY | 2025-02-25 09:31 | XMS_ITS | Encounter Summary ---
Author Organization [facility] Address [address] [place] [address] Care Team Providers Care Manager Research Name Role Phone Neo Lee MD Primary Care Provider [phone] Encounter Details Date Type Department Care Team (Latest Contact Info) Description 08/23/1998 Inpatient Historical Historical [facility] Trace Carson W, DO [address] [place] [address] Other symptoms involving digestive system(787.99) (Primary Dx) Social History Tobacco Use Types Packs/Day Years Used Date Smoking Tobacco: Never Assessed Comments Unknown Sex and Gender Information Value Date Recorded Sex Assigned at Not on file 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
--- OUTSIDE RECORDS SUMMARY | 2025-02-25 09:31 | XMS_ITS | Encounter Summary ---
Author Organization [facility] Address [address] [place] [address] Care Team Providers Care Survey Cad Technician Name Role Phone Ilene Riojas Primary Care Provider [phone] Reason for Visit * Reason Comments Results Encounter Details Date Type Department Care Team ([facility] Contact Info) Description 02/23/2025 Telephone [facility] [place] [address] [place] [address] [facility] [address] [place] [address] Results Social History Tobacco Use Types Packs/Day Years Used Date Smoking Tobacco: Never Passive Smoke Exposure: Never Smokeless Tobacco: Never Alcohol Use Standard Drinks/Week Comments Never 0 (1 standard drink = 0.6 oz pur e alcohol) Feeling Safe Answer Date Recorded Are you in a relationship wi th someone who hurts you emotionally and/or physically? No 05/17/2024 Food Insecurity Answer Date Recorded Patient needs follow up regardin 08/08/2024 Transportation Needs Answer Date Record ed Patient needs follow up regardin 08/08/2024 Utility Needs Answer Date Recorded Patient needs follow up regardin 08/08/2024 Comments No Sex and Gender Information Value Date Recorded Sex Assigned at Not on file Legal Sex Female 7:44 AM MANAGER INSTRUMENTATION Gender Identity Not on file Sexual Orientation Not on file documented as of this encounter Miscellaneous Notes * Telephone Encounter - Sintia Thomas LPN - 02/23/2025 4:05 PM CST 02/23/2025 4:05 PM I returned pt's call and let her know that a B6 was not drawn. Pt is wanting to know if a B6 can beordered if insurance will cover this. Pt was advised to reach out to her insurance to see if they will cover this. Pt verbalized understanding. Sintia KENNY GER INSTRUMENTATION * Telephone Encounter - Aleah Lu - 02/23/2025 4:01 PM CST Copied from [facility] #[id number]. Topic: CPA Information Request - Results >> Feb 23, 2025 4:00 PM Aleah Sorto wrote: Caller is requesting information about results from an order. ? Caller Name: Trice Bullock Callback Number: [phone] (mobile) Test Name: labs Results Encounter notes are: Reviewed with Clinic and Patient has additional questions Call Notes: Results were given and the patient has additional questions - she wanted to know what her B6 level was GER INSTRUMENTATION documented in this encounter Plan of Treatment Upcoming Encounters Date Type Department Care Team (Late st Contact Info) Description 03/05/2025 8:00 AM MANAGER INSTRUMENTATION Office Visit [facility] Family Medicine [place] [address] [place] [address] Matty Boston FNP [address] [place] [address] 05/18/2025 1:20 PM MANAGER INSTRUMENTATION Office Visit [facility] Orthoped[facility] - Orthopedic [facility] [address] [place] [phone] Atiya Patel, NICKY [address] [place] [address] 09/03/2025 10:40 AM CDT Office Visit [facility] [address] [place] [address] Matty Boston, [facility] [address] [place] [facility] [place] [place] [address] 03/05/2026 11:00 AM MANAGER INSTRUMENTATION Office Visit [facility] [address] [place] [phone] Matty Boston, [facility] [address] [place] [facility] [place] [place] [address] documented as of this encounter Visit Diagnoses Not on filedocumented in this encounter Care Teams Survey Cad Technician Relationship Specialty Start Date End Date Ilene Riojas DO [address] [place] [phone] PCP - General Family Practice 10/30/24 documented as of this encounter
--- OUTSIDE RECORDS SUMMARY | 2025-02-25 09:31 | XMS_ITS | Encounter Summary ---
Author Organization [facility] Address [address] [facility] [place] [address] Care Team Providers Care Information Lead Name Role Phone Neo Lee MD Primary Care Provider [phone] Encounter Details Date Type Department Care Team (Late st Contact Info) Description 08/11/2000 Inpatient Historical [facility] [address] [place] [address] Tacho Broderick MD [address] [place] [phone] (Work) Other screening mammogram (Primary Dx) Social History Tobacco Use Types Packs/Day Years Used Date Smoking Tobacco: Never Assessed Comments Unknown Sex and Gender Information Value Date Recorded Sex Assigned at Not on file 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
--- OUTSIDE RECORDS SUMMARY | 2025-02-25 09:31 | XMS_ITS | Encounter Summary ---
Author Organization [facility] Address [address] [place] [address] Care Team Providers Care Pollution Control Engineer Name Role Phone Ilene Riojas Primary Care Provider [phone] Encounter Details Date Type Department Care Team (Latest Contact Info) Description 02/02/2025 Results Follow-Up [facility] [place] [address] [place] [address] [facility] [address] [place] [address] CBC WITH DIFFERENTIAL, COMPREHENSIVE METABOLIC PANEL, HEMOGLOBIN A1C, Additional followed-up results: 5 Social History Tobacco Use Types Packs/Day Years [...] on file Legal Sex Female 7:44 AM EMERGENCY VETERINARY TECHNICIAN Gender Identity Not on file Sexual Orientation Not on file documented as of this encounter Plan of Treatment Upcoming Encounters Date Type Department Care Team (Late st Contact Info) Description 03/05/2025 8:00 AM EMERGENCY VETERINARY TECHNICIAN Office Visit [facility] [address] [place] [facility] [address] Matty Boston, [facility] [address] [place] [address] 05/18/2025 1:20 PM EMERGENCY VETERINARY TECHNICIAN Office Visit [facility] - [facility] [address] [facility] [place] [phone] Atiya Patel, BENCH INSPECTOR [address] [place] [address] 09/03/2025 10:40 AM CDT Office Visit [facility] [address] [place] [facility] [place] [address] Matty Boston, [facility] [address] [place] [address] 03/05/2026 11:00 AM EMERGENCY VETERINARY TECHNICIAN Office Visit [facility] [address] [place] [address] Matty Boston, [facility] [address] [place] [address] documented as of this encounter Visit Diagnoses Not on filedocumented in this encounter Care Teams Pollution Control Engineer Relationship Specialty Start Date End Date Ilene Riojas DO [address] [place] [address] PCP - General Family Practice 10/30/24 documented as of this encounter
--- OUTSIDE RECORDS SUMMARY | 2025-02-25 09:31 | XMS_ITS | Encounter Summary ---
Author Organization [facility] Address [address] [place] [address] Care Team Providers Care Technical Implementation Lead Name Role Phone Neo Lee MD Primary Care Provider [phone] Encounter Details Date Type Department Care Team (Latest Contact Info) Description 08/23/1998 Inpatient Historical Historical [facility] Rad Trace Carson W, DO [address] [place] [address] Nonspecific abnormal results of liver function study (Primary Dx) Social History Tobacco Use Types Packs/Day Years Used Date Smoking Tobacco: Never Assessed Comments Unknown Sex and Gender Information Value Date Recorded Sex Assigned at Not on file 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
--- OUTSIDE RECORDS SUMMARY | 2025-02-25 09:31 | XMS_ITS | Clinical Summary ---
Author Organization [facility] Address [address] [place]: Epic Prelude ADT [place] [address] Care Team Providers Care Refrigeration Manager Name Role Phone Ilene Riojas DO Primary Care Provider [phone] Allergies Active Allergy Reactions Criticality Noted Date Comments Codeine Unknown 05/09/2009 Medications aspirin (ECOTRIN EC) 81 mg Tablet, Delayed Release (E.C.) Take 81 mg by mouth daily. Active atorvastatin (LIPITOR) 40 mg tablet Take 1 Tablet (40 mg) by mouth daily. 90 Tablet 4 10/31/19 Active cephALEXin (KEFLEX) 500 mg capsule Take 4 tablets one hour prior to dental appointment 4 Capsule 1 01/25/20 Active Additional Information Patient not taking.Reported on 01/31/2025 OTHER Take by mouth daily. NERVE SYNC Active lisinopriL (PRINIVIL) 20 mg tabletIndication s:Benign hypertension Take 1 Tablet (20 mg) by mouth 2 times daily. 180 Tablet 4 02/01/20 Active lisinopriL (PRINIVIL) 20 mg tablet Take 1 Tablet (20 mg) by mouth daily. 90 Tablet 4 10/31/19 25 025 Discontin ued(Reord er) Active Problems Problem Noted Date Diagnosed Date Primary insomnia 01/31/2025 Neck muscle spasm 01/31/2025 Chronic left shoulder pain 01/31/2025 Nocturnal leg cramps 01/31/2025 Over weight 01/31/2025 Stress and adjustment reaction 01/31/2025 History of TIA (transient ischemic attack) and s troke 10/30/2024 History of fusion of lumbar spine 10/30/2024 Neuropathy of left upper extremity 10/30/2024 Benign hypertension 10/27/2024 Muscle fatigue 10/27/2024 Idiopathic peripheral neuropathy 10/27/2024 Numbness and tingling 10/27/2024 Status post left hip replacement - 05/17/202403/2025 Primary osteoarthritis of left hip 05/03/2024 Prediabetes 05/03/2024 Multiple thyroid nodules 04/25/2019 Gastroesophageal reflux disease 04/25/2019 Mixed hyperlipidemia 04/25/2019 Primary osteoarthritis involving multiple joints 04/25/2019 Resolved Problems Problem Noted Date Diagnosed Date Resolved Date Restless leg syndrome 01/31/20252024 Cerebrovascular accident (CVA) 10/27/2024 10/30/2024 Preoperative general physical examination 05/03/2024 10/30/2024 Encounters Date Type Department Care Team Description 02/23/2025 Telephone [facility] [address] [place] [address] Matty Boston FNP Results 02/09/2025 Orders Only [facility] Health Information Management [place] [address] [place] [address] Kristen Parekh Screening mammogram, encounter for 02/02/2025 Results Follow-Up [facility] [address] [place] [address] Matty Boston FNP CBC WITH DIFFERENTIAL, COMPREHENSIVE METABOLIC PANEL, HEMOGLOBIN A1C, Additional followed-up results: 5 01/31/2025 8:00 AM CDT Office Visit [facility] [address] [place] [address] Matty Boston FNP Benign hypertension (Primary Dx); Screening for skin cancer; Face lesion; SK (seborrheic keratosis); Primary insomnia; Neck muscle spasm; Chronic left shoulder pain; Idiopathic peripheral neuropathy; Nocturnal leg cramps; Over weight; Stress and adjustment reaction; Prediabetes; Screening mammogram, encounter for; Chronic anemia; Mixed hyperlipidemia 01/24/2025 External Device Data STL ABSTRACTION Provider, Abstract 01/23/2025 External Device Data [place] ABSTRACTION Provider, Abstract 01/22/2025 Orders Only [facility] Orthopedics - Orthopedic [facility] [address] [address] Elijah Reyna MD 12/26/2024 External Device Data ST[place] ABSTRACTION Provider, Abstract 12/19/2024 External Device Data ST[place] ABSTRACTION Provider, Abstract 12/12/2024 External Device Data [place] ABSTRACTION Provider, Abstract from Last 3 Months Immunizations Immunization Administration [...] Passive Smoke Exposure: Never Smokeless Tobacco: Never Tobacco Cessation:Counseling Given: No Alcohol Use Standard Drinks/Week Comments Never 0 [...] on file Legal Sex Female 7:44 AM PAPER SPOOLER Gender Identity Not on file Sexual Orientation Not on file Last Filed Vital Signs Vital Sign Reading Time Taken Comments Blood Pressure 164/90 01/31/2025 8:13 AM CDT Pulse 87 01/31/2025 8:11 AM CDT Temperature 36.7 C (98.1 F) 01/31/2025 8:11 AM CDT Respiratory Rate 17 01/31/2025 8:11 AM CDT Oxygen Saturation 96% 01/31/2025 8:11 AM CDT Inhaled Oxygen Concentration - - Weight 84.2 kg (185 lb 9.6 oz) 01/31/2025 8:11 A M CDT Height 167.6 cm (5' 6 ) 01/31/2025 8:11 AM CDT Body Mass Index 29.96 01/31/2025 8:11 AM CDT Plan of Treatment Upcoming Encounters Date Type Department Care Team (Late st Contact Info) Description 03/05/2025 8:00 AM PAPER SPOOLER Office Visit [facility] [address] [place] [address] Matty Boston, [facility] [address] [place] [address] 05/18/2025 1:20 PM PAPER SPOOLER Office Visit [facility] Orthopedics - Orthopedic [facility] [address] [place] [address] Atiya Patel, [place] [address] [place] [address] 09/03/2025 10:40 AM CDT Office Visit [facility] [address] [place] [address] Matty Boston, [facility] [address] [place] [address] 03/05/2026 11:00 AM PAPER SPOOLER Office Visit [facility] [address] [place] [phone] Matty Boston, [facility] [address] [facility] [place] [address] Health Maintenance Due Date Last Done Comments FIT/ DNA Q 3 YEARS (AUTO ORDER) 1968 FIT/FOBT Q 1 YEAR (AUTO ORDER) 1968 FIT-DNA Q 3 years 09/01/1995 FIT/FOBT Q 1 year 09/01/1995 Flex Sig/CT Colonography Q 5 years 09/01/1995 ZOSTER VACCINE (1 of 2) 2000 PNEUMOCOCCAL VACCINE 50+ YEA RS (2 of 2 - PCV20 or PCV21) 01/12/2016 01/11/2015 FLEX SIG/CT COLONOGRAPHY Q 5 YEARS (AUTO ORDER) 03/24/2021 03/24/2016, 03/24/2016 [place] Preventative Visit/Annual Wellness Visit 04/05/2024 INFLUENZA VACCINE (#1) 2024 01/11/2015, 2012 RSV VACCINE (60+ or ) (1 - 1-dose 75+ series) 2025 BREAST CANCER SCREENING 02/08/2026 02/09/20, 05/03/2023, 04/12/2018, Additional history exists COLORECTAL CANCER SCREENING (AUTO ORDER) 03/24/2026 03/24/2016, 03/24/2016, 03/24/2016 COLORECTAL SCREENING 03/24/2026 03/24/2016, 03/24/2016, 03/24/2016 Colorectal Cancer Screening (AUTO ORDER) 03/24/2026 Colorectal Cancer Screening 03/24/2026 OSTEOPOROSIS SCREENING 05/03/2028 05/03/2023, 2018 DTAP/TDAP/TD VACCINES (2 - T d or Tdap) 04/18/2034 04/18/2024, 01/06/2006 Medical Devices Implanted Type Area Bird Sitter Device Identifier Shelf Expiration Date Model / Serial / Lot Shell Emphasys 48mm 3hl Acet [facility] 4710-48-300 - [id number] Implanted:Qty: 1 on 05/17/2024 by Elijah Reyna MD at [facility] Hip Left: Hip [employer] [id number] 02/02/2034 4710-48-3 00 / / [id number] Stem Fem Actis Hi Colr Sz4 1010-12-040 - [id number] Implanted:Qty: 1 on 05/17/2024 by Elijah Reyna MD at [facility] Hip Left: Hip [employer] [id number] 07/03/2033 1010-12-0 40 / / [id number] Head Fem Art/Darren Cer Sz28 1365-28-310 - [id number] Implanted:Qty: 1 on 05/17/2024 by Elijah Reyna MD at [facility] Hip Left: Hip [employer] FRED[employer]IE [id number] 08/02/2026 1365-28-3 10 / / [id number] Emp Dm Alureen 48mm 38mm Implanted:Qty: 1 on 05/17/2024 by Elijah Reyna MD at [facility] Left: Hip 01/02/2034 DEPUY-[id number] 5-48-038 / / [id number] Emp Mob Bear Head 38mm 28mm Implanted:Qty: 1 on 05/17/2024 by Elijah Reyna MD at [facility] Left: Hip 01/02/2029 DEPUY-[id number] 2-38-028 / / [id number] Procedures Procedure Name Priority Date/Time Associated Diagnosis Comments MAMMO 3D SERENA SCREEN BILAT W OR WO CAD Routine 02/08/2025 Screening mammogram, encounter for IRON, TIBC, AND PERCENT SATURATION Routine 01/31/2025 8:50 AM CDT Chronic anemia VITAMIN B12 AND FOLATE Routine 01/31/2025 8:50 AM CDT Chronic anemia LIPID PANEL Routine 01/31/2025 8:50 AM CDT Benign hypertension Prediabetes Mixed hyperlipidemia TSH Routine 01/31/2025 8:50 AM CDT Benign hypertension Prediabetes Mixed hyperlipidemia HEMOGLOBIN A1C Routine 01/31/2025 8:50 AM CDT Prediabetes COMPREHENSIVE METABOLIC PANEL Routine 01/31/2025 8:50 AM CDT Benign hypertension Prediabetes Mixed hyperlipidemia CBC WITH DIFFERENTIAL Routine 01/31/2025 8:50 AM CDT Benign hypertension Prediabetes Chronic anemia Mixed hyperlipidemia XR DEXA BONE DENSITY AXIAL 1 OR MORE SITES Routine 05/03/2023 12:20 PM PAPER SPOOLER ENDOSCOPY, COLON, SCREENING 03/24/2016 12:00 AM PAPER SPOOLER from Last 3 Months or Most Recently Relevant to Health Maintenance Results * MAMMO 3D SERENA SCREEN BILAT W OR WO CAD (02/08/2025) Anatomical Region Laterality Modality Breast Bilateral Mammography Matty ERYESP MAMMO ORDERABLES Final Res ult * VITAMIN B12 AND FOLATE (01/31/2025 8:50 AM CDT) VITAMIN B12 365 200 - 1100 pg/mL [facility] Comment: Please Note: Although the reference range for vitamin B12 is 200-1100 pg/mL, it has been reported that between 5 and 10% of patients with values between 200 and 400 pg/mL may experience neuropsychiatric and hematologic abnormalities due to occult B12 deficiency; less than 1% of patients with values above 400 pg/mL will have symptoms. FOLATE, SERUM 11.2 ng/mL [facility] Comment: Reference Range Low: <3.4 Borderline: 3.4-5.4 Normal: >5.4 FASTING:YES FASTING: YES Test Performed at: [facility] [address] [address] Wilson Graham MD Blood 01/31/2025 8:50 AM CDT 01/31/2025 8:51 AM CDT Matty REYESP CHEMISTRY ORDERABLES Final Result [facility] [phone] [facility] [address] * IRON, TIBC, AND PERCENT SATURATION (01/31/2025 8:50 AM CDT) Pathologist [facility] IRON 142 45 - 160 mcg/dL [facility] TIBC 330 250 - 450 mcg/dL (calc) [facility] IRON % SATURATION 43 16 - 45 % (calc) [facility] Comment: Test Performed at: [facility] [address] Wilson Graham MD Blood 01/31/2025 8:50 AM CDT 01/31/2025 8:51 AM CDT Matty Boston SALES SERVICE ROUTE MANAGER CHEMISTRY ORDERABLES Final Result [facility] [phone] [facility] [address] * CBC WITH DIFFERENTIAL (01/31/2025 8:50 AM CDT) [facility] WBC 8.8 3.8 - 10.8 Thousand/u L [facility] RBC 4.22 3.80 - 5.10 Million/uL [facility] HEMOGLOBIN 13.3 11.7 - 15.5 g/dL [facility] HEMATOCRIT 41.1 35.0 - 45.0 % [facility] MCV 97.4 80.0 - 100.0 fL [facility] MCH 31.5 27.0 - 33.0 pg [facility] MCHC 32.4 32.0 - 36.0 g/dL [facility] Comment: For adults, a slight decrease in the calculated MCHC value (in the range of 30 to 32 g/dL) is most likely not clinically significant; however, it should be interpreted with caution in correlation with other red cell parameters and the patient's clinical condition. RDW 12.3 11.0 - 15.0 % [facility] PLATELETS 343 140 - 400 Thousand/u L [facility] MPV 10.3 7.5 - 12.5 fL [facility] NEUTROPHIL ABSOLUTE 4,462 1,500 - 7,800 cells/uL [facility] LYMPHOCYTE ABSOLUTE 3,238 850 - 3,900 cells/uL [facility] MONOCYTE ABSOLUTE 642 200 - 950 cells/uL [facility] EOSINOPHIL ABSOLUTE 378 15 - 500 cells/uL [facility] BASOPHILS ABSOLUTE 79 0 - 200 cells/uL [facility] NEUTROPHIL 50.7 % [facility] LYMPHOCYTES 36.8 % [facility] MONOCYTE 7.3 % [facility] EOSINOPHILS 4.3 % [facility] BASOPHILS 0.9 % [facility] Comment: FASTING:YES FASTING: YES Test [facility]formed at: [facility] [address] Wilson Graham MD Blood 01/31/2025 8:50 AM CDT 01/31/2025 8:51 AM CDT Matty REYESP HEMATOLOGY ORDERABLES Vivian l Result Performing Organization Address City/[facility]/ZIP Co de Phone Number [facility] [phone] [facility] [address] * TSH (01/31/2025 8:50 AM CDT) TSH 2.70 0.40 - 4.50 mIU/L [facility] Comment: Test Performed at: [facility] [address] Wilson Graham MD Blood 01/31/2025 8:50 AM CDT 01/31/2025 8:51 AM CDT Matty REYESP CHEMISTRY ORDERABLES Final Result [facility] [phone] [facility] [address] * (ABNORMAL) HEMOGLOBIN A1C (01/31/2025 8:50 AM CDT) Pathologist [facility] HEMOGLOBIN A1C 6.1(H) <5.7 % [facility] Comment: For someone without known diabetes, a hemoglobin A1c value between 5.7% and 6.4% is consistent with prediabetes and should be confirmed with a follow-up test. For someone with known diabetes, a value <7% indicates that their diabetes is well controlled. A1c targets should be individualized based on duration of diabetes, age, comorbid conditions, and other considerations. This assay result is consistent with an increased risk of diabetes. Currently, no consensus exists regarding use of hemoglobin A1c for diagnosis of diabetes for children. ESTIMATED AVERAGE GLUCOSE (MG/DL) 128 mg/dL [facility] ESTIMATED AVERAGE GLUCOSE (MMOL/L) 7.1 mmol/L [facility] Comment: FASTING:YES FASTING: YES Test Performed at: [facility] [address] [place] [address] Wilson Graham MD Blood 01/31/2025 8:50 AM CDT 01/31/2025 8:51 AM CDT Matty Boston SALES SERVICE ROUTE MANAGER CHEMISTRY ORDERABLES Final Result [facility] [phone] [facility] [address] * (ABNORMAL) LIPID PANEL (01/31/2025 8:50 AM CDT) CHOLESTEROL 119 <200 mg/dL [facility] HDL 43(L) > OR = 50 mg/dL [facility] TRIGLYCERIDE 129 <150 mg/dL [facility] LDL CALCULATED 55 mg/dL (calc) [facility] Comment: Reference range: <100 Desirable range <100 mg/dL for primary prevention; <70 mg/dL for patients with CHD or diabetic patients with > or = 2 CHD risk factors. LDL-C is now calculated using the John calculation, which is a validated novel method providing better accuracy than the Friedewald equation in the estimation of LDL-C. Kobe WELLER et al. DANA. 2013;310(19): 7648-1682 (http://education.VisitorsCafe/faq/VCN979) CHOL/HDL RATIO 2.8 <5.0 (calc) [facility] NON-HDL CHOLESTEROL 76 <130 mg/dL (calc) [facility] Comment: For patients with diabetes plus 1 major ASCVD risk factor, treating to a non-HDL-C goal of <100 mg/dL (LDL-C of <70 mg/dL) is considered a therapeutic option. Test Performed at: [facility] [address] Wilson Graham MD Blood 01/31/2025 8:50 AM CDT 01/31/2025 8:51 AM CDT Matty Boston SALES SERVICE ROUTE MANAGER CHEMISTRY ORDERABLES Final Result [facility] [phone] [facility] [address] * COMPREHENSIVE METABOLIC PANEL (01/31/2025 8:50 AM CDT) GLUCOSE 98 65 - 99 mg/dL [facility] Comment: Fasting reference interval BUN 20 7 - 25 mg/dL [facility] CREATININE 0.67 0.60 - 1.00 mg/dL [facility] GFR 92 > OR = 60 mL/min/1. 73m2 [facility] BUN/CREAT RATIO SEE NOTE: 6 - 22 (calc) [facility] Comment: Not Reported: BUN and Creatinine are within reference range. SODIUM 142 135 - 146 mmol/L [facility] POTASSIUM 4.4 3.5 - 5.3 mmol/L [facility] CHLORIDE 106 98 - 110 mmol/L [facility] CO2 27 20 - 32 mmol/L [facility] CALCIUM 9.7 8.6 - 10.4 mg/dL [facility] TOTAL PROTEIN 6.9 6.1 - 8.1 g/dL [facility] ALBUMIN 4.5 3.6 - 5.1 g/dL [facility] GLOBULIN 2.4 1.9 - 3.7 g/dL (calc) [facility] ALBUMIN/GLOBULIN RATIO 1.9 1.0 - 2.5 (calc) [facility] BILIRUBIN TOTAL 0.5 0.2 - 1.2 mg/dL [facility] ALKALINE PHOSPHATASE 88 37 - 153 U/L [facility] AST 17 10 - 35 U/L [facility] ALT 19 6 - 29 U/L [facility] Comment: FASTING:YES FASTING: YES Test Performed at: [facility] [address] [place] [address] Wilson Graham MD Blood 01/31/2025 8:50 AM CDT 01/31/2025 8:51 AM CDT Matty Boston SALES SERVICE ROUTE MANAGER CHEMISTRY ORDERABLES Final Result [facility] [phone] [facility] [address] [place] [address] * XR DEXA BONE DENSITY AXIAL 1 OR MORE SITES (05/03/2023 12:20 PM PAPER SPOOLER) Anatomical Region Laterality Modality Other us Abstract Provider DIAGNOSTIC IMAGING ORDERABLES Edited Result - Final * ENDOSCOPY, COLON, SCREENING (03/24/2016 12:00 AM PAPER SPOOLER) Sgf Scanning GI PROCEDURE ORDERABLES Final Re sult from Last 3 Months or Most Recently Relevant to Health Maintenance Insurance [facility] MEDICARE HMO RX [facility] Medicare Part D RX [employer] (INTERNAL) [facility] Internal Plans Advance Directives For more information, please contact: [phone] * Full Code (Latest Code Status on File) Date Activated Date Inactivated Comments 05/17/2024 11:05 AM 05/18/2024 3:22 PM * Full Code Date Activated Date Inactivated Comments 05/17/2024 5:31 AM 05/17/2024 11:05 AM Care Teams Refrigeration Manager Relationship Specialty Start Date End Date Ilene Riojas DO [address] [place] [phone] PCP - General Family Practice 10/30/24
--- OUTSIDE RECORDS SUMMARY | 2025-02-25 09:31 | XMS_ITS | Clinical Summary ---
Author Organization [facility] Philipp lyons [place] Address [address] [place] [address] Phone Care Team Providers Care School Guard Name Role Phone Neo Lee MD Primary Care Provider Allergies Active Allergy Reactions Criticality Noted Date [...] on file Legal Sex Female 10:48 AM OPTICAL INSTRUMENT ASSEMBLY SUPERVISOR Gender Identity Not on file Sexual Orientation Not on file Last Filed Vital Signs Vital Sign Reading Time Taken Comments Blood Pressure 120/62 04/25/2019 8:16 AM OPTICAL INSTRUMENT ASSEMBLY SUPERVISOR Pulse 67 04/25/2019 8:16 AM OPTICAL INSTRUMENT ASSEMBLY SUPERVISOR Temperature 36.6 C (97.8 F) 04/25/2019 8:16 AM OPTICAL INSTRUMENT ASSEMBLY SUPERVISOR Respiratory Rate 18 04/25/2019 8:16 AM OPTICAL INSTRUMENT ASSEMBLY SUPERVISOR Oxygen Saturation 98% 04/25/2019 8:16 AM OPTICAL INSTRUMENT ASSEMBLY SUPERVISOR Inhaled Oxygen Concentration - - Weight 74.8 kg (165 lb) 04/25/2019 8:16 AM OPTICAL INSTRUMENT ASSEMBLY SUPERVISOR Height 167.6 cm (5' 6 ) 04/25/2019 8:16 AM OPTICAL INSTRUMENT ASSEMBLY SUPERVISOR Body Mass Index 26.63 04/25/2019 8:16 AM OPTICAL INSTRUMENT ASSEMBLY SUPERVISOR Plan of Treatment Health Maintenance Due Date Last Done Comments DTAP/TDAP/TD VACCINES (1 - Tdap) 1969 FIT-DNA Q 3 years 09/01/1995 FIT/FOBT Q 1 year 09/01/1995 Flex Sig/CT Colonography Q 5 years 09/01/1995 PNEUMOCOCCAL VACCINE 50+ YEA RS (1 of 1 - PCV) 2000 ZOSTER VACCINE (1 of 2) 2000 Traditional Medicare ([place]) A nnual Wellness Visit 04/26/2020 04/25/2019 OSTEOPOROSIS SCREENING 04/12/2023 04/12/2018 INFLUENZA VACCINE (#1) 2024 RSV VACCINE (60+ or ) (1 - 1-dose 75+ series) 2025 BREAST CANCER SCREENING 02/08/2026 02/09/20, 04/12/2018, 03/11/2016 COLORECTAL SCREENING 03/24/2026 03/24/2016, 03/24/20 16 Colorectal [...] Insurance MEDICARE PART A AND B [facility] [facility] Care Teams School Guard Relationship Specialty Start Date End Date Neo Lee MD [address] [place] [address] PCP - General Family Practice 04/25/19
[2025-02-25 09:37] VITALS: BMI 27.3
--- NOTE | 2025-02-25 09:39 | ED_ITS ---
HPI - Chest Pain 2 General: Chief Complaint: Chest Pain Stated Complaint: previous cp, nausea, L arm pain throught the night Time Seen by Provider: 02/25/25 09:35 History of Present Illness: 74-year-old female with a history of hyp erlipidemia and hypertension who presents emergency room with chest pain. Says this started overnight. Pressure in her lower central chest region. She had some nausea. She threw up and the pain improved briefly. Then she developed tingling in her left arm. No cough. No fever. No abdominal pain. No history of cardiac issues. She had a cholecystectomy in the past. Related Data Previous Rx's ?Medication ?Instructions ?Recorded aspirin 325 mg tablet 325 mg PO DAILY #30 tabs atorvastatin 40 mg tablet (Lipitor) 40 mg PO DAILY #30 tabs 10/27/24 lisinopril 20 mg tablet 20 mg PO DAILY #30 tabs 10/04 08/27 ondansetron 4 mg disintegrating 4 mg PO Q8H PRN nausea and 02/25/25 tablet vomiting #10 tabs Allergies Allergy/AdvReac Type Severity Reaction Status Date / Time codeine Allergy Unknown Verified 10/27/24 14:00 Review of Systems 2 Narrative: Constitutional symptoms: Negative except as documented in HPI. Skin symptoms: Negative except as documented in HPI. Eye symptoms: Negative except as documented in HPI. ENMT symptoms: Negative except as documented in HPI. Respiratory symptoms: Negative except as documented in HPI. Cardiovascular symptoms: Negative except as documented in HPI. Gastrointestinal symptoms: Negative except as documented in HPI. Genitourinary symptoms: Negative except as documented in HPI. Musculoskeletal symptoms: Negative except as documented in HPI. Neurologic symptoms: Negative except as documented in HPI. Psychiatric symptoms: Negative except as documented in HPI. Endocrine symptoms: Negative except as documented in HPI. Physical Exam 2 Narrative: EXAM NARRATIVE: General: Alert, no acute distress. Skin: Warm, dry. Head: Normocephalic, atraumatic. Neck: Supple, trachea midline. Eye: Extraocular movements are intact. Ears, nose, mouth and throat: mucosa moist. Cardiovascular: Regular, Normal peripheral perfusion. Respiratory: Lungs are clear to auscultation, respirations are non-labored, breath sounds are equal, Symmetrical chest wall expansion. Gastrointestinal: Soft, epigastric tenderness to palpation, Non distended Musculoskeletal: Normal ROM, no deformity. Neurological: Alert and oriented, No focal neurological deficit observed. Psychiatric: Cooperative, appropriate mood & affect. Course 2 Vital Signs: Vital signs: Vital Signs Temperature 97.8 F 02/25/25 09:47 Pulse Rate 75 02/25/25 10:10 Respiratory Rate 16 02/25/25 10:10 Blood Pressure 120/78 02/25/25 09:47 Pulse Oximetry 99 02/25/25 10:10 Oxygen Delivery Me thod Room Air 02/25/25 10:10 MDM - Chest Pain Medical Decision Making Medical decision making Patient's reason for coming to the emergency room: Social determinants: Patient is retired. Accompanied by daughter. I reviewed the patient's medical record. Saw the patient here in October for a TIA. That is her only other visit to this facility. I reviewed the patient's current home meds Patient is on aspirin, atorvastatin and lisinopril at home. Alternate historians: None Differential diagnosis including but not limited to and based on the above HPI, review of systems and physical exam: In this patient with epigastric pain differential would include cholelithiasis or cholecystitis. Hepatitis. Diverticulitis. Constipation. UTI. colitis. small bowel obstruction. Crohn's flare. pancreatitis. gastritis. peptic ulcer. also concern for acute cardiac event. Orders placed to evaluate differential diagnosis based on the above differential, HPI and physical exam EKG: Time 9:44 AM. Rate time normal sinus rhythm, No ST-T changes, no ectopy, normal [place] & QRS intervals, This was reviewed and interpreted by myself the ER physician at 9:48 AM Repeat EKG: Time 1134. Rate 73. Normal sinus rhythm, No ST-T changes, no ectopy, normal [place] & QRS intervals, This was reviewed and interpreted by myself the ER physician at 1140. Chest x-ray: No acute process. No infiltrate. No pneumothorax. This was reviewed and interpreted by myself the emergency room physician. I also reviewed the radiology report. Lab Review: Laboratory results were reviewed and interpreted by myself the emergency room physician. Mild leukocytosis with a white count of 15,000. No anemia. Troponin minimally elevated at 15. Lipase is elevated at 547. Serial cardiac markers are negative. CT of the abdomen pelvis: No signs of pancreatitis. Some free fluid in the abdomen. No other acute findings. Assessment of risk: Level of risk: Hospitalization considerations: We discussed admission. Patient would prefer to go home. Given that she does not have any evidence of pancreatitis on her CT and that her lipase was only mildly elevated and she had a single episode of vomiting she wanted to see if she could tolerate liquids and try to get better at home. Clinical decision support: Heart score is 0 Reexamination: Patient tolerating p.o. Epigastric pain has improved. No chest pain. No altered mental status. Assessment and plan: Elevated lipase Vomiting Diarrhea ?Possibly a mild pancreatitis versus gastroenteritis and vomiting. Either way she feels better and wants to try clear liquids at home. - Discharged home - Discussed plan with patient. Answered any questions. - Evaluation and treatment of this problem were appropriate in the emergency setting. Lab Data 02/25/25 09:46 02/25/25 09:46 Radiology Impressions Chest X-Ray 02/25/25 09:30 IMPRESSION: No acute findings. Abdomen/Pelvis CT 02/25/25 10:55 IMPRESSION: 1. Mild free fluid in the pelvis. No evidence of pancreatitis. 2. Other findings as detailed above. Laboratory Results WBC 14.68 10^3/uL (3.29-11.43) H 02/25/25 09:46 RBC 4.44 10^6/uL (3.85-5.65) 02/25/25 09:46 Hgb 14.10 g/dL (11.27-16.99) 02/25/25 09:46 Hct 42.7 % (36-47) 02/25/25 09:46 MCV 96.2 fl (85-98) 02/25/25 09:46 MCH 31.8 pg (27-33) 02/25/25 09:46 MCHC 33.0 g/dL (30-55) 02/25/25 09:46 RDW 12.5 % (12.1-15.1) 02/25/25 09:46 Plt Count 291 10^3/cmm (157-399) 02/25/25 09:46 MPV 9.5 fL (7.4-10.4) 02/25/25 09:46 Neut % (Auto) 73.9 % 02/25/25 09:46 Lymph % (Auto) 12.4 % 02/25/25 09:46 [place] % (Auto) 7.4 % 02/25/25 09:46 Eos % (Auto) 5.6 % 02/25/25 09:46 Baso % (Auto) 0.2 % 02/25/25 09:46 Neut # (Auto) 10.85 10^3/uL (1.8-7.7) H 02/25/25 09:46 Lymph # (Auto) 1.8 10^3/uL (0.8-4.8) 02/25/25 09:46 [place] # (Auto) 1.1 10^3/uL (0.2-0.9) H 02/25/25 09:46 Eos # (Auto) 0.8 10^3/uL (0.0-0.8) 02/25/25 09:46 Baso # (Auto) 0.0 10^3/uL (0.0-0.1) 02/25/25 09:46 Nucleated RBC % (auto) 0 % 02/25/25 09:46 Nucleated RBCs # 0.0 /100WBC 02/25/25 09:46 PT 13.10 SECONDS (12.1-14.9) 02/25/25 09:46 INR 0.93 (0.8-1.2) 02/25/25 09:46 APTT 28.6 SECONDS (23.9-36.7) 02/25/25 09:46 Sodium 141 mmol/L (136-145) 02/25/25 09:46 Potassium 4.3 mmol/L (3.5-5.1) 02/25/25 09:46 Chloride 107 mmol/L (98-107) 02/25/25 09:46 Carbon Dioxide 23 mmol/L (22-29) 02/25/25 09:46 Anion Gap 15.3 (5-19) 02/25/25 09:46 BUN 15 mg/dL (8-23) 02/25/25 09:46 Creatinine 0.6 mg/dL (0.5-0.9) 02/25/25 09:46 GFR Calculation Not Reportable 02/25/25 09:46 Glucose 113 mg/dL (65-115) 02/25/25 09:46 Calculated Osmolality 294 mOsm/kg (285-295) 02/25/25 09:46 Calcium 8.9 mg/dL (8.5-10.5) 02/25/25 09:46 Total Bilirubin 0.4 mg/dL (0.15-1.2) 02/25/25 09:46 AST 35 U/L (0-32) H 02/25/25 09:46 ALT 24 U/L (0-33) 02/25/25 09:46 Alkaline Phosphatase 137 U/L (35-105) H 02/25/25 09:46 Troponin T Baseline 15 ng/L (0-10) H 02/25/25 09:46 Troponin T 120 Minute 14.36 ng/L (0-10) H 02/25/25 10:37 Delta Troponin T -0.64 ABS# (0-10) L 02/25/25 10:37 NT-Pro-B Natriuret Pep 66 pg/mL (0-125) 02/25/25 09:46 Total Protein 6.3 g/dL (6.6-8.7) L 02/25/25 09:46 Albumin 4.2 g/dL (3.5-5.2) 02/25/25 09:46 Globulin 2.1 g/dL (1.3-4.6) 02/25/25 09:46 Lipase 547 U/L (13-60) H 02/25/25 09:46 All radiology interpretation(s) finalized by discharge Clincial Decision Support The following clinical decision support tools were used to aid in care of the patient HEART Score -> History: Slightly Suspicous, EKG: Normal, Age: Less than 45 yrs, Risk Factors: No Risk Factors Known, Troponin: Baseline Trop <16 ng/L. Resulting HEART Score: 0. Discharge Plan Discharge Patient Disposition: Home Clinical Impression: Epigastric pain, Elevated lipase, Vomiting Condition: Stable Prescriptions: New ondansetron 4 mg tablet,disintegrating 4 mg PO Q8H PRN (Reason: nausea and vomiting) Qty: 10 0RF No Action atorvastatin [Lipitor] 40 mg tablet 40 mg PO DAILY Qty: 30 1RF lisinopril 20 mg tablet 20 mg PO DAILY Qty: 30 1RF aspirin 325 mg tablet 325 mg PO DAILY Qty: 30 1RF Discharge Orders: Discharge ED (Routine); Ordered 02/25/25 Ordered By: Anna More Referrals: Matty Boston FNP [Primary Care Provider] Discharge Diet: Advance as tolerated Discharge Activity: Increase activity as tolerated Patient Instructions: Clear Liquid Diet (ED), Abdominal Pain (ED), Opioid Safety, Pain Management, Patient Portal & Loni Instructions Activity Restrictions/Additional Instructions: Clear to full liquid diet over the next day or 2. Thank you for choosing [facility] for your healthcare needs today. You have been screened and evaluated and felt safe for discharge. Health conditions do change or evolve sometimes and as such it is important that you follow up with your Primary Doctor to be re checked, 3-5 days is a general good time frame for follow up. You are always welcome to return to the ED for re assessment if your symptoms are worsening or you have new concerns Print Language: Faroese Coding Level of Care Code ED Music Therapy Teacher for Ludyg Joellen Heart Score HEART Score Components History: Slightly Suspicous EKG: Normal Age: Less than 45 yrs Risk Factors: No Risk Factors Known Troponin: Baseline Trop <16 ng/L HEART Score RESULT HEART Score: 0
[2025-02-25 09:47] VITALS: BP 120/78; PULSE 76; RESP 16; TEMP 36.6; O2SAT 90
[2025-02-25 09:55] LABS: Hematocrit 42.7 % (36-47); Hemoglobin 14.10 g/dL (11.27-16.99); Mean Corpuscular HGB Conc 33.0 g/dL (30-55); Mean Corpuscular Hemoglobin 31.8 pg (27-33); Mean Corpuscular Volume 96.2 fl (85-98); Nucleated Red Blood Cells % 0 %; Platelet Count 291 10^3/cmm (157-399); Red Blood Count 4.44 10^6/uL (3.85-5.65); White Blood Count 14.68 10^3/uL (3.29-11.43)
[2025-02-25 10:08] LABS: INR 0.93 (0.8-1.2); Partial Thromboplastin Time 28.6 SECONDS (23.9-36.7); Prothrombin Time 13.10 SECONDS (12.1-14.9)
[2025-02-25 10:10] VITALS: PULSE 75; RESP 16; O2SAT 99
[2025-02-25 10:14] LABS: Troponin(5th) Baseline 15 ng/L (0-10)
[2025-02-25 10:34] LABS: Alanine Aminotransferase 24 U/L (0-33); Albumin Level 4.2 g/dL (3.5-5.2); Alkaline Phosphatase 137 U/L (35-105); Anion Gap 15.3 (5-19); Aspartate Amino Transferase 35 U/L (0-32); Blood Urea Nitrogen 15 mg/dL (8-23); Calcium 8.9 mg/dL (8.5-10.5); Carbon Dioxide 23 mmol/L (22-29); Chloride 107 mmol/L (98-107); Globulin 2.1 g/dL (1.3-4.6); Glucose 113 mg/dL (65-115); NT Pro B Type Natriuretic Pept 66 pg/mL (0-125); Osmolality Calculated 294 mOsm/kg (285-295); Potassium 4.3 mmol/L (3.5-5.1); Sodium 141 mmol/L (136-145); Total Protein 6.3 g/dL (6.6-8.7)
[2025-02-25 10:40] LABS: Lipase 547 U/L (13-60)
--- NOTE | 2025-02-25 10:55 | CTR_ITS ---
PROCEDURE INFORMATION: Exam: CT Abdomen And Pelvis With Contrast Exam date and time: 02/25/2025 11:12 AM Age: 74 years old Clinical indication: Abdominal pain; Additional info: Pancreatitis TECHNIQUE: Imaging protocol: Computed tomography of the abdomen and pelvis with contrast. Radiation optimization: All CT scans at this facility use at least one of these dose optimization techniques: automated exposure control; mA and/or kV adjustment per patient size (includes targeted exams where dose is matched to clinical indication); or iterative reconstruction. Contrast material: OMNI 350; Contrast volume: 100 ml; Contrast route: INTRAVENOUS (IV); COMPARISON: CR (CHEST, ) 02/25/2025 9:47 AM RADIATION DOSE METRICS: Total DLP (mGy-cm): 810.43 FINDINGS: Diaphragm: Small hiatal hernia. Liver: Normal. No mass. Gallbladder and biliary ducts: Status post cholecystectomy. Pancreas: Normal. No ductal dilation. Spleen: Normal. No splenomegaly. Adrenal glands: Normal. No mass. Kidneys and ureters: Normal. No hydronephrosis. Stomach and bowel: Unremarkable. No obstruction. No mucosal thickening. Tortuous sigmoid colon. Appendix: No evidence of appendicitis. Intraperitoneal space: Mild free fluid in the pelvis. Vasculature: Unremarkable. No abdominal aortic aneurysm. Lymph nodes: Unremarkable. No enlarged lymph nodes. Urinary bladder: Unremarkable as visualized. Reproductive: Unremarkable as visualized. Bones/joints: Status post laminectomy and posterior spinal fusion from L3-L5. Left hip prosthesis. Soft tissues: Unremarkable. CT/CT abdomen pelvis w con* [id number] IMPRESSION: 1. Mild free fluid in the pelvis. No evidence of pancreatitis. 2. Other findings as detailed above.
[2025-02-25 11:09] LABS: Troponin 5 2HR 14.36 ng/L (0-10)
[2025-02-25] MEDS: iohexol 350 mg/mL 500 mL Btl (per mL) IV (11:10)
[2025-02-25 11:12] LABS: Troponin 5 2HR Delta -0.64 ABS# (0-10)
--- NOTE | 2025-02-25 11:34 | ECG_ITS ---
[facility] Test Date: 2025-02-25 Pat Name: Trice Bullock Department: Room: Gender: Female Grants Director: : 1950 Requested By: Anna Harris Order Number: [id number] Peter MD: Miya Benitez M.D. Measurements Intervals [place] Rate: 73 P: 45 NH: 156 QRS: 37 QRSD: 84 T: 53 QT: 360 QTc: 399 Interpretive Statements SINUS RHYTHM WITH MARKED SINUS ARRHYTHMIA Compared to ECG 02/25/2025 09:41:46 No significant changes Electronically Signed On 02-25-2025 17:37:16 AGRICULTURAL SERVICES DIRECTOR by Miya Benitez M.D. [email or web address]
== END 2025-02-25 12:48 | disposition home or self-care (01) ==
PROVIDERS: Emergency Provider Emergency Medicine; PCP Nurse Practitioner Family
DX: R10.13 Epigastric pain (principal); R74.8 Abnormal levels of other serum enzymes; R11.10 Vomiting, unspecified; Z79.82 Long term (current) use of aspirin
CPT/HCPCS: 36415; 71045; 74177; 80053; 83690; 83880; 84484; 85025; 85610; 85730; 93005; 99285; J9999

== ENCOUNTER → 2025-03-06 08:05 | Outpatient (BNVA) | payer MEDICARE, SELFPAY | PROVIDERS: PCP Nurse Practitioner Family; Referring Provider Nurse Practitioner Family; Visit Provider Nurse Practitioner Family | DX: L57.8 Other skin changes due to chronic exposure to nonionizing radiation (principal); L81.4 Other melanin hyperpigmentation; D23.61 Other benign neoplasm of skin of right upper limb, including shoulder; L82.1 Other seborrheic keratosis; D18.01 Hemangioma of skin and subcutaneous tissue; L72.0 Epidermal cyst; L91.8 Other hypertrophic disorders of the skin; L53.8 Other specified erythematous conditions; R20.8 Other disturbances of skin sensation; L57.0 Actinic keratosis | CPT/HCPCS: 10060; 11200; 17000; 99203 ==